=== PATIENT | male | born 1960 | race Caucasian/White ===

== ENCOUNTER 2023-09-04 09:21 | Outpatient (CLI) | payer OTHER ==
--- NOTE | 2023-09-04 12:39 | Ultrasound Report ---
PROCEDURE: Duplex Ext Veins Left INDICATIONS: CHRONIC EMBOLISM AND THOMBOS UNSP DEEP VEINS OF L TECHNIQUE: Real-time imaging, as well as color and pulse Doppler interrogation, were performed of the lower extr emity deep veins from the inguinal ligament to the popliteal fossa. Attempted visualization of the ca lf veins was performed. COMPARISON: None. FINDINGS: The deep veins are normally compressible, and free of intraluminal thrombus. Color and pu lse Doppler demonstrate normal phasic intraluminal flow. There is normal augmentation response to di stal compression maneuver. IMPRESSION: No deep venous thrombosis of the visualized lower extremity. Reviewed by: Lev Noonan MD on 09/04/2023 12:38 PM PST Approved by: Lev Noonan MD on 09/04/2023 12:38 PM PST Station ID: [id number]
== END 2023-09-04 09:22 | disposition home or self-care (01) ==
LOC: DI 09:21
PROVIDERS: ATTEND Student in an Organized Health Care Education/Training Program
DX: I82.502 Chronic embolism and thrombosis of unspecified deep veins of left lower extremity (principal)

== ENCOUNTER 2024-02-24 11:17 | Day surgery (SDC) | payer OTHER ==
[2024-02-24] MEDS ORDERED: PROPOFOL 200 MG/20 ML VIAL IVP ONE (11:21)
[2024-02-24] MEDS ORDERED: LIDOCAINE-MPF 2% 5 ML VIAL ONE (11:26)
[2024-02-24] MEDS: LACTATED RINGERS 1,000 ML IV ONE ×2 (12:22→14:48)
--- NOTE | 2024-02-24 13:02 | ANESTHESIA ---
Pre-Anesthesia VS, & Labs - Diagnosis GERD - Procedure EGD Vital Signs: Temp Pulse Resp BP Pulse Ox O2 Flow Rate 36.2 C L 66 16 128/68 96 02/24/24 12:03 02/24/24 12:03 02/24/24 12:03 02/24/24 12:03 02/24/24 12:03 Height: 6 ft 1 in Weight (kg): 103.4 kg Body Mass Index: 30.0 BMI Classification: Obese - NPO Last Fluid Intake: 0900 Last Food Intake: >8HR Home Medications and Allergies Home Medications: Ambulatory Orders Atorvastatin [Lipitor] 20 mg PO QPM 02/23/24 Atorvastatin [Lipitor] 20 mg PO QPM 02/23/24 Allergies/Adverse Reactions: Allergies Allergy/AdvReac Type Severity Reaction Status Date / Time No Known Drug Allergies Allergy Verified 02/23/24 13:32 Anes History & Medical History - Anesthetic History Anesthesia Complications: reports: No previous complications - Medical History Cardiovascular: reports: High cholesterol (DENIES HTN; NO MEDS; DENIES CP/SOB, HX [place] OR [facility]THM[facility]) Pulmonary: reports: None Gastrointestinal: reports: None, GERD (BURPS A LOT PER PT) Urinary: reports: None Musculoskeletal: reports: None Endocrine/Autoimmune: reports: None Skin: reports: Other - Surgical History General: reports: Appendectomy Results - EKG Results EKG Comparison: Reviewed EKG Exam General: Alert, Oriented x3 Dental: WNL (RIGHT UPPER CENTRAL INCISOR RECENTLY HAD A CHIP REPAIRED; DISCUSSED RARE POSSIBILTY OF DENTAL DAMAGE WITH PATIENT, DUE TO BITE BLOCK AND SCOPE) Mouth Openin Fingerbreadth Neck Mobility: Normal Mallampati classification: II Thyromental Distance: 4-6 cm Plan Anesthesia Type: Total IV Consent for Procedure(s) Verified and Reviewed: Yes Code Status: Attempt Resuscitation ASA classification: 2-Mild systemic disease Is this case an emergency?: No
--- NOTE | 2024-02-24 14:24 | HISTORY & PHYSICAL EXAMINATION ---
Chief Complaint - Chief Complaint Chief Complaint: indigestion History of Present Illness - History Obtained From Records Reviewed: yes History obtained from: pt Exam Limitations: none - History of Present Illness HPI Comment/Other: indigestion with discomfort and belching for months. getting worse. no burning, pain on swallowing. no weight loss. no symptoms to suggest celiac. History - Past Medical History Cardiovascular: reports: High cholesterol (DENIES HTN; NO MEDS; DENIES CP/SOB, HX [place] OR [facility]TH[facility]) Respiratory: reports: None Endocrine/Autoimmune: reports: None GI: reports: None, GERD (BURPS A LOT PER PT) : reports: None Musculoskeletal: reports: None Derm: reports: Other MRSA Hx?: No - Past Surgical History General: reports: Appendectomy Meds/Allgy - Home Medications Home Medications: Ambulatory Orders Medication Instructions Recorded Confirmed Atorvastatin [Lipitor] 20 mg PO QPM 02/23/24 02/23/24 - Allergies Allergies/Adverse Reactions: Allergies Allergy/AdvReac Type Severity Reaction Status Date / Time No Known Drug Allergies Allergy Verified 02/23/24 13:32 Review of Systems - Other Findings Other Findings: 10 pt ros as above otherwise unremarkable Exam - Vital Signs Vital Signs: Vital Signs x48h Temp Pulse Resp BP Pulse Ox 02/24/24 12:03 36.2 C L 66 16 128/68 96 - Physical Exam General Appearance: positive: No acute distress, Alert Eyes Bilateral: positive: PERRL, EOMI ENT: positive: No signs of dehydration Neck: positive: No JVD Respiratory: positive: No respiratory distress Cardiovascular: positive: Regular rate & rhythm Abdomen: positive: No distention Neurologic/Psychiatric: positive: Oriented x3 Conclusion/Plan - Problem List (1) Indigestion Conclusion/Plan: upper abdominal discomfort and belching for months. getting worse. plan egd. parq held and consent obtained
[2024-02-24 15:02] VITALS: BP 118/68; O2SAT 97
--- NOTE | 2024-02-24 15:04 | ANESTHESIA POST OP EVALUATION ---
Anesthesia Post Eval - Post Anesthesia Eval Vitals: Last Vital Signs Temp 36.6 C 02/24/24 14:48 Pulse 70 02/24/24 14:59 Resp 20 02/24/24 14:59 BP 118/68 02/24/24 14:59 Pulse Ox 97 02/24/24 14:59 O2 Flow Rate CV Function Including HR & BP: Stable Pain Control: Satisfactory Nausea & Vomiting: Negative Mental Status: Baseline Respiratory Status: Airway Patent Hydration Status: Satisfactory Anesthesia Complications: None - Other Details/Therapies Other Details/Therapies: Patient confirmed that the recent repair of his right upper central incisor was INTACT after the procedure.
== END 2024-02-24 11:18 | disposition home or self-care (01) ==
LOC: SDS 11:17
PROVIDERS: ATTEND Surgery
PROC: 0DB78ZX Excision of Stomach, Pylorus, Via Natural or Artificial Opening Endoscopic, Diagnostic (ICD-10-PCS; 2024-02-24)
PROC: 0DB38ZX Excision of Lower Esophagus, Via Natural or Artificial Opening Endoscopic, Diagnostic (ICD-10-PCS; principal; 2024-02-24 13:15)
DX: K30 Functional dyspepsia (principal); K21.9 Gastro-esophageal reflux disease without esophagitis; K29.50 Unspecified chronic gastritis without bleeding; K44.9 Diaphragmatic hernia without obstruction or gangrene; K22.10 Ulcer of esophagus without bleeding
CPT/HCPCS: 43239; J7120